=== PATIENT | male | born 1945 | race Caucasian/White ===

== ENCOUNTER 2016-11-20 10:00 | Day surgery (SDC) | payer MEDICARE, OTHER ==
[~2016-11-20] VITALS: Ht 180.3 cm; Wt 85.3 kg
[2016-11-20] VITALS (7 sets, daily range): BP systolic 112–139; BP diastolic 62–90; PULSE 57–71; RESP 10–16; O2SAT 91–96
[~2016-11-20 10:00] MED LIST: FINA5TAB9 PO; HYDR25TA4 PO; LISI-567 PO; Lactated Ringer's 1,000 ML IV SCH; Levofloxacin 500 mg/100 mL D5W IV ONE; METO25TA6 PO; NPR500T PO; OMEP20CA11 PO; ROPI2TAB3 PO; SILD50TA PO; TAMS0.4C98 PO; ZYL100 PO; simvastatin
[2016-11-20] MEDS ORDERED: Propofol 10,000 mCg/mL 20 mL Inj ONE (10:01)
[2016-11-20] MEDS ORDERED: fentaNYL-PF 50 mCg/mL 2 mL Inj ONE (10:01)
[2016-11-20] MEDS ORDERED: Ondansetron 2 mg/mL 2 mL Inj ONE (10:01)
[2016-11-20] MEDS ORDERED: Lactated Ringer's 1,000 ML IV ONE (11:25)
--- NOTE | 2016-11-20 14:16 | PCM.HPANE ---
Patient Data Surgeon Admitting Provider: Attending Provider:Екатерина Juan MD Primary Care Physician:John Chaparro MD Other Provider:[place] [facility] Reason for Visit History Of Bph Ht/WT & BMI Height (Feet): 5 Height (Inches): 11.00 Weight (Kilograms): 85.280 Body Mass Index 26.00 Allergies Coded Allergies: No Known Allergies (Unverified , 11/17/16) Past Anesthesia History Anesthesia History: Denies:: Abnormal Airway, Difficult Intubation Diabetes History Hx Diabetes?: No MRSA MRSA: No Medications Hypertension Medication: Yes Home Meds Incl Beta Massiel: Yes Reported Medications Sildenafil Citrate (Viagra)50 Mg [id number] Mg PO UD PRN erectile dysfunction Ref 0 11/17/16 Tamsulosin (Flomax)0.4 Mg Capsule0.4 Mg PO DAILY Ref 0 11/17/16 [simvastatin] No Conflict CheckUnknown Dose DAILY 11/17/16 Ropinirole 2 Mg Tablet2 Mg PO TID Ref 0 11/17/16 Omeprazole 20 Mg Capsule.dr20 Mg PO DAILY Ref 0 11/17/16 Naproxen 500 Mg Riy397 Mg PO BID PRN For Pain Ref 0 11/17/16 Metoprolol Tartrate 25 Mg Bopeht26 Mg PO BID 30 Days Ref 0 11/17/16 Lisinopril 20 Mg Rjolhm63 Mg PO DAILY 30 Days Ref 0 11/17/16 Hydrochlorothiazide 25 Mg Vapsyw60 Mg PO DAILY 30 Days Ref 0 11/17/16 Finasteride 5 Mg Tablet5 Mg PO DAILY 30 Days Ref 0 11/17/16 Allopurinol 100 Mg Mriypp279 Mg PO DAILY Ref 0 11/17/16 History HEENT History: Denies:: Abnormal Airway Cataracts Difficult Intubation Dysphagia Glaucoma Hearing Problem Sinus Problem TMJ Teeth Condition: Missing Teeth Hx of Heart Problems?: Yes Cardiovascular History: Positive for:: Hypertension Denies:: AICD Atrial Fibrillation Cardiac Surgery Chest Pain Heart Murmur Irregular Heartbeat Pacemaker Peripheral Vascular Hx of Respiratory Problem?: No Respiratory History: Denies:: Asthma COPD Emphysema Oxygen Administration Pneumonia Tuberculosis Use of C-PAP Machine Use of Inhalers / NEBS Neurological History: Denies:: CVA Dementia Dizziness Headaches Multiple Sclerosis Parkinson's Disease Seizures TIA Hx of GI Problems?: Yes Gastrointestinal History: Positive for:: Gastroesphageal Reflux Heartburn Denies:: Cirrhosis Gall Bladder Disease Gastrointestinal Bleeding Hepatitis Hiatal Hernia Liver Disease Rectal Bleeding Hx of Problems?: No Genitourinary History: Denies:: Kidney Stones Urinary Tract Infection Male Hx: Positive for:: Prostate Problems (bph current admission problem) Skin History: Denies:: History Skin Disorders? Pressure Ulcers Hx Musculoskeletal Problems?: Yes Musculoskeletal History: Positive for:: Joint Replacement (right knee) Osteoarthritis Denies:: Back Injury Fibromyalgia Musculoskeletal Trauma Myasthenia Gravis Systemic Lupus Hx of Psycho/Social Problems?: No Psycho Social History: Denies:: Anxiety Hx Depression Hx Surgeries?: Yes (left total knee ) Hx Any Other Health Problems?: Yes Other History: Positive for:: Cancer (skin ) Denies:: Thyroid Disease History Blood Transfusions: Positive for:: Accept Blood Products? Denies:: Blood Transfusions Hx Diabetes: No Hx Alcohol Use: YesAlcoholic Drinks Per Day: 6 pack beer dailyHx Substance Use : NoHave You Smoked inLast 12 mo: No Stop/Bang S-Snoring: Do You Snore Loudly: No T-Tired: feel tired, fatigued: No O-Obsered: Observed not breath: No P-Blood Pressure: treated: Yes B- Body Mass Index > 35 kg/m2: No A- Age over 50: Yes N- Neck Large Circumference: No G- Gender Male: Yes DESIREE Total Score: 3 Risk Assessment Category Category 1A: Patient has history of documented sleep apnea, and HAS NOT received any narcotic, sedative or anesthesia administration during this stay. Category 1B: Patient has history of documented sleep apnea, and HAS received any narcotic , sedative or anesthesia administration during this stay Category 2: Patient has SUSPECTED Obstructive Sleep Apnea, and HAS received any narcotic , sedative or anesthesia administration during this stay. Category 3: Patient has SUSPECTED Obstructive Sleep Apnea and HAS NOT received narcotic, sedative or anesthesia administration during this stay. Category 4: Outpatient in Procedural Areas with known sleep apnea or who screen positive for High Risk via the STOP/BANG questionnaire. Exam Exam General Appearance: Alert, Oriented X3, Cooperative, No Acute Distress HEENT/AIRWAY: MP 2 Lungs: Clear to Auscultation Heart: Exam Unremarkable Plan Impression Patient chart reviewed, patient interviewed and anesthestic plan with risks, benefits, and alternatives discussed, and informed consent obtained. ASA Physical Status: ASA2 Mod Systemic Disease Anesthetic Plan: GA Bene/Risks/Altern/Consents: Yes HP Complete Prior to Induction: Yes Connor Villegas MD Nov 20, 2016 06:51
[2016-11-20] MEDS ORDERED: Lactated Ringer's 500 ML IV PRN (14:56)
[2016-11-20] MEDS ORDERED: Lactated Ringer's 1,000 ML IV SCH (14:56)
[2016-11-20] MEDS ORDERED: EPHEDrine Sulfate 50 mg/mL Inj IVPUSH PRN (15:00)
[2016-11-20] MEDS ORDERED: HYDROmorphone 1 mg/mL Inj IVPUSH PRN (15:00)
[2016-11-20] MEDS ORDERED: Dexamethasone 4 mg/mL Inj IVPUSH PRN (15:00)
[2016-11-20] MEDS ORDERED: MetoCLOpramide 5 mg/mL 2 mL Inj IVPUSH PRN (15:00)
[2016-11-20] MEDS ORDERED: Phenylephrine 10,000 mCg/mL Inj IVPUSH PRN (15:00)
[2016-11-20] MEDS ORDERED: Ondansetron 2 mg/mL 2 mL Inj IVPUSH PRN (15:00)
[2016-11-20] MEDS ORDERED: fentaNYL-PF 50 mCg/mL 2 mL Inj IVPUSH PRN (15:00)
--- NOTE | 2016-11-20 15:17 | PCM.ANEP1 ---
Post Anesthesia Phase 1 PACU Phase 1 Assessment Vital Signs Vital Signs Date Time Temp Pulse Resp B/P Pulse Ox O2 Delivery O2 Flow Rate FiO2 11/20/16 11:26 36.1 57 14 139/90 96 Room Air Anesthetic Administered: GA Level of Alertness: Sleepy, easy to arouse GORDON's with Equal Strength: Yes Pain: No Nausea or Vomiting: No Oxygen Delivery: Room Air Lungs: Clear to Auscultation Dermatome Level: Full Sensation Connor Villegas MD Nov 20, 2016 15:17
[2016-11-20] MEDS ORDERED: HYDROcodone-APAP 5-325 mg Tablet PO PRN (15:25)
--- NOTE | 2016-11-20 15:30 | PCM.ANEP2 ---
Post Anesthesia Evaluation ASA/CMS Post Anesthesia VS in Patient's Normal Range?: Yes Resp Stable; Airway Patent?: Yes CV Function & Hydration Stable: Yes Mental Status Recovered?: Yes Pain control Satisfactory?: Yes N/V Control Satisfactory?: Yes Connor Villegas MD Nov 20, 2016 15:30
--- NOTE | 2016-11-21 00:03 | OP ---
[address] [address] OPERATIVE REPORT PATIENT: KATHIE MENDEZ : 1945 MR#: [id number] ADMIT: 11/20/2016 JOB ID: [id number] DATE OF SURGERY: 11/20/2016. PREOPERATIVE DIAGNOSIS(ES): Lower urinary tract symptoms. POSTOPERATIVE DIAGNOSIS(ES): Lower urinary tract symptoms. PROCEDURE PERFORMED: Cystoscopy and transurethral resection of prostate. SURGEON: Екатерина Juan MD. ASSISTANT BRAND MANAGER: None. FINDINGS: Bilateral coapted lobes of prostate. ANESTHESIA: General. ESTIMATED BLOOD LOSS: Less than 5 mL. DRAINS: An 18-Bahamian coude catheter to the bladder. SPECIMENS: Prostate chips. COMPLICATIONS: None. CONDITION: Stable. INDICATIONS FOR PROCEDURE: The patient is a 71-year-old male with lower urinary tract symptoms. After reviewing his options, he wished to undergo transurethral resection of prostate. DESCRIPTION OF PROCEDURE: After informed consent was obtained patient was taken to the operating room. A time-out was performed identifying correct patient, surgical site, and procedure. General anesthesia was induced. He was placed in lithotomy position. All pressure points were identified and appropriately padded. His genitals were then prepped and draped in usual sterile fashion. The urethra was somewhat small so it was dilated from 16 to 30-Bahamian in succession with Ezequiel sounds just at the meatus. This was a gentle dilation without bleeding. The 26-Bahamian resectoscope was applied to the patient's urethra and advanced to the bladder. Bladder was drained. Both ureteral orifices were seen in orthotopic position. The bladder was systematically inspected. The bladder was normal. The resection of prostate commenced from the right lobe at the bladder neck to just proximal to the verumontanum. The resection commenced from the right lobe to the left lobe in piecemeal fashion. The chips were evacuated multiple times throughout the procedure. At the end of the procedure, all the chips had been evacuated. Both ureteral orifices were seen again and left as undisturbed. There was excellent hemostasis at the end of procedure. An 18-Bahamian coude catheter was placed in the patient's bladder and instilled with 15 cc of sterile water and set to dependent drainage and secured to the patient's thigh. He was reversed from general anesthesia and taken to the PACU in good and stable condition. MARLON
--- NOTE | 2016-11-28 15:56 | PATH ---
SURGICAL PATHOLOGY Attending Physician:Екатерина Juan, CASE STATUS: Signed Out * Amended * PATIENT NAME: KATHIE MENDEZ JR PID: [id number] : 1945 DATE COLLECTED:11/20/2016 23:33 SPECIMEN: Prostate, Chips CLINICAL HISTORY: BENIGN PROSTATIC HYPERPLASIA 1). RESECTED PROSTATE FINAL DIAGNOSIS: Prostate, Transurethral Resection (Weight 4 grams): One focus of atypical small acinar proliferation (approximately 2 mm in greatest dimension), suspicious for possible prostatic adenocarcinoma; there is insufficient tissue volume for further evaluation. The atypical focus is present in a background of chronic prostatitis and stromal and glandular hyperplasia. ICD10 N40.1 This case was reviewed and interpreted by Dr. Екатерина Domínguez. The final diagnosis is unchanged. This amendment is issued in order for the report to cross the interface and be available in the hospital electronic medical record. GROSS DESCRIPTION: The specimen is received in one formalin filled container labeled with the patient's name, labeled "prostate chips" and consists of multiple portions of tissue which aggregate to 4.0 x 4.0 x 0.6 CM. Specimen weighs 4 g in total. The specimen is entirely submitted in 4 cassettes. 11/21/2016 DAC MICRO DESCRIPTION: IMMUNOHISTOCHEMISTRY: Block 1D p63:Region of interest not present. High molecular weight cytokeratin: Region of interest not present. ICD-9 CODES: CPT CODES: 1: 36718, 90827, 18356 PROCEDURE/ADDENDA: Addendum SPI Addendum Diagnosis Case sent to Pathology for 2nd Opinion per request from Dr. Juan. Prostate Tissue, Transurethral Resection ([facility] [id number]): Single atypical small acinar proliferation, suspicious for prostatic adenocarcinoma. (subsequently negative by immunohistochemistry - 12/05/16 [facility]) Dr. Juan approves of pursuing a final diagnosis by immunohistochemistry. This is undertaken using tissue transfer from the original slide with Dr. Екатерина Domínguez's permission. Antibodies helpful in identifying prostatic carcinoma prove convincingly that this focus is not invasive adenocarcinoma (preservation of the basal epithelial layer, absence of P504S). The final diagnosis is thus: Prostate tissue, negative for malignancy or high grade PIN. Addendum Comment Please see Pathology report [id number] for complete details. Electronically Signed Out Екатерина Domínguez MD AMENDMENT(S): Amended: 11/28/2016 by Brittney Trent Reason:Miscellaneous The final diagnosis is unchanged. This amendment is issued in order for the report to cross the interface and be available in the hospital electronic medical record. Previous Signout Date: 11/23/2016 Electronically Signed Out Flor Monterroso MD [facility] [address], [place] [address] Technical component performed at [facility], [facility] [address], [place], [address]
== END 2016-11-20 23:59 | disposition home or self-care (01) ==
LOC: SAS 10:00
PROVIDERS: ATTEND Urology
DX: N40.1 Benign prostatic hyperplasia with lower urinary tract symptoms (principal); R39.12 Poor urinary stream; R35.0 Frequency of micturition; R32 Unspecified urinary incontinence; I10 Essential (primary) hypertension
CPT/HCPCS: 52601; 88307; 88341; 88342; J2405; J3010; J7120